=== PATIENT | female | born 1945 | race Caucasian/White ===

== ENCOUNTER 2018-03-20 09:20 | Emergency (ER) | payer MEDICARE, OTHER ==
[2018-03-20] MEDS ORDERED: Acetaminophen 500 MG TAB ONE (09:30)
[2018-03-20] MEDS ORDERED: Ibuprofen 200 MG TAB ONE (09:30)
--- NOTE | 2018-03-20 10:11 | RAD ---
LEFT KNEE 4 VIEWS: Date: 03/20/18 HISTORY: Left knee pain. FINDINGS: Degenerative changes are present, manifested by osteophyte formation and joint space narrowing, most prominent in the medial tibiofemoral and patellofemoral compartments. No fracture, dislocation, or rea ny destruction is seen IMPRESSION: Left knee osteoarthritis. POS: [facility]
== END 2018-03-20 10:18 | disposition home or self-care (01) ==
LOC: SCSER 09:20
DX: M25.562 Pain in left knee (principal); E03.9 Hypothyroidism, unspecified; E78.5 Hyperlipidemia, unspecified; I10 Essential (primary) hypertension; Z79.899 Other long term (current) drug therapy; X58.XXXA Exposure to other specified factors, initial encounter